=== PATIENT | female | born 1985 ===

== ENCOUNTER 2017-02-18 13:56 | Outpatient (CLI) | payer OTHER, SELFPAY ==
[~2017-02-18] VITALS: Ht 165.1 cm; Wt 76.0 kg
[2017-02-18 14:18] VITALS: BP 117/57
[2017-02-18] MEDS ORDERED: PRENTAB9 PO (14:29)
[2017-02-18] MEDS ORDERED: MAKE250I IM (14:30)
[2017-02-18] MEDS ORDERED: BUPR10TASR PO (14:47)
[2017-02-18 15:50] VITALS: BP 114/51
[2017-02-18 17:07] VITALS: BP 118/60
[2017-02-18 17:10] LABS: MEAN CORPUSCULAR HEMOGLOBIN 29.3 pg (27.0-33.0); MEAN CORPUSCULAR HGB CONC 33.3 g/dl (32.0-36.5); MEAN CORPUSCULAR VOLUME 87.9 fl (80.0-96.0); RED CELL DISTRIBUTION WIDTH 12.7 % (11.5-14.5); WHITE BLOOD COUNT 9.2 10^3/uL (4.0-10.0)
[2017-02-18 17:42] LABS: INR 0.91
[2017-02-18] MEDS: BETAMETHASONE SOLUSPAN 6MG/ML INJ 5ML (J0702) IM ONE (18:22)
== END 2017-02-18 18:33 | disposition home or self-care (01) ==
LOC: M LDO 13:56
PROVIDERS: ATTEND Obstetrics & Gynecology
DX: O26.852 Spotting complicating pregnancy, second trimester (principal); Z3A.26 26 weeks gestation of pregnancy; O99.342 Other mental disorders complicating pregnancy, second trimester; O99.412 Diseases of the circulatory system complicating pregnancy, second trimester; O44.02 Complete placenta previa NOS or without hemorrhage, second trimester; Z88.7 Allergy status to serum and vaccine
CPT/HCPCS: 36415; 85027; 85384; 85610; 85730; 96372; J0702